=== PATIENT | male | born 1950 | race Caucasian/White ===

== ENCOUNTER 2016-11-07 14:25 | Outpatient (CLI) | payer MEDICARE, OTHER | END 2016-11-07 14:26 | disposition home or self-care (01) | DX: N50.819 Testicular pain, unspecified (principal); N50.3 Cyst of epididymis ==

== ENCOUNTER 2016-11-13 08:54 | Outpatient (CLI) | payer MEDICARE, OTHER | END 2016-11-13 08:55 | disposition home or self-care (01) | DX: Z12.5 Encounter for screening for malignant neoplasm of prostate (principal); E11.9 Type 2 diabetes mellitus without complications; Z79.899 Other long term (current) drug therapy; H93.19 Tinnitus, unspecified ear; R51 Headache; M54.5 Low back pain; M19.90 Unspecified osteoarthritis, unspecified site | CPT/HCPCS: 36415; 80053; 80061; 82570; 83036; 84156; 84443; 85025; 85651; 86140; G0103 ==

== ENCOUNTER 2016-11-27 13:46 | Outpatient (CLI) | payer MEDICARE, OTHER | END 2016-11-27 13:47 | disposition home or self-care (01) | DX: G31.9 Degenerative disease of nervous system, unspecified (principal); I67.82 Cerebral ischemia; J32.0 Chronic maxillary sinusitis; J32.2 Chronic ethmoidal sinusitis; J32.3 Chronic sphenoidal sinusitis ==

== ENCOUNTER 2017-12-25 08:00 | Outpatient (CLI) | payer MEDICARE, OTHER ==
[2017-12-25 17:45] LABS: BILIRUBIN,URINE NEGATIVE (NEGATIVE); GLUCOSE, URINE (UA) NEGATIVE (NEGATIVE); KETONES,URINE (UA) NEGATIVE (NEGATIVE); LEUKOCYTE ESTERASE, URINE NEGATIVE (NEGATIVE); NITRITE,URINE NEGATIVE (NEGATIVE); OCCULT BLOOD,URINE SMALL (NEGATIVE); PROTEIN,URINE NEGATIVE (NEGATIVE); UROBILINOGEN,URINE 0.2 (NORMAL) E.U./dL (NORMAL)
[2017-12-25 17:48] LABS: BASOPHILS % (AUTO) 0.6 %; CLARITY,URINE CLEAR (CLEAR); EOSINOPHILS # (AUTO) 0.1 10^3/uL (0.0-0.7); EOSINOPHILS % (AUTO) 1.8 %; HGB - HEMOGLOBIN 15.8 g/dL (14.0-18.0); LYMPHOCYTES # (AUTO) 1.4 10^3/uL (1.5-3.5); LYMPHOCYTES % (AUTO) 17.4 %; MEAN CORPUSCULAR HEMOGLOBIN 31.4 pg (27.0-31.0); MEAN CORPUSCULAR HGB CONC 33.7 g/dL (32.0-36.0); MEAN CORPUSCULAR VOLUME 93.4 fL (80.0-94.0); MEAN PLATELET VOLUME 9.9 fL (7.4-11.4); MONOCYTES # (AUTO) 0.7 10^3/uL (0.0-1.0); MONOCYTES % (AUTO) 9.1 %; NEUTROPHILS # (AUTO) 5.7 10^3/uL (1.5-6.6); NEUTROPHILS % (AUTO) 71.1 %; PLT - PLATELET COUNT 266 10^3/uL (130-450); RED BLOOD COUNT 5.02 10^6/uL (4.70-6.10)
[2017-12-25 17:56] LABS: BACTERIA,URINE None Seen /HPF (None Seen); CASTS, URINE 0-2 Hyaline Casts /LPF; RBC,URINE 0-5 /HPF (0-5); SQUAMOUS EPITHELIAL CELL,UR NONE SEEN (<= Few)
[2017-12-25 18:02] LABS: CREATININE,URINE 125.3 mg/dL; MICROALBUMIN,URINE 0.5 mg/dL (0-300.0)
[2017-12-25 18:15] LABS: ALBUMIN 4.3 g/dL (3.2-5.5); ALBUMIN/GLOBULIN RATIO 1.5 (1.0-2.2); ALKALINE PHOSPHATASE 58 IU/L (42-121); ALT ALANINE AMINOTRANSFERASE 19 IU/L (10-60); AST ASPARTATE AMINOTRANSFERASE 22 IU/L (10-42); BILIRUBIN,TOTAL 0.9 mg/dL (0.2-1.0); BUN - BLOOD UREA NITROGEN 12 mg/dL (6-20); CARBON DIOXIDE - CO2 24 mmol/L (21-32); CHLORIDE 101 mmol/L (101-111); CHOL/HDL RATIO 2.7 (<5.0); CHOLESTEROL 153 mg/dL; CREATININE 0.8 mg/dL (0.6-1.2); GFR - MDRD 96 (>89); GLUCOSE 122 mg/dL (70-100); HDL CHOLESTEROL 57 mg/dL; LDL CHOLESTEROL,CALCULATED 84 mg/dL; LDL/HDL RATIO 1.5 (<3.6); SODIUM 133 mmol/L (135-145); TOTAL PROTEIN 7.1 g/dL (6.7-8.2); VLDL CHOLESTEROL 12 mg/dL
[2017-12-25 19:37] LABS: HB2 TOTAL 18.1 g/dL; HEMOGLOBIN A1C 0.63 g/dL; HEMOGLOBIN A1C % 5.3 % (4.6-6.2)
== END 2017-12-25 08:01 | disposition home or self-care (01) ==
LOC: LAB.F 08:00
PROVIDERS: ATTEND Internal Medicine
DX: R03.0 Elevated blood-pressure reading, without diagnosis of hypertension (principal); E11.9 Type 2 diabetes mellitus without complications; M54.5 Low back pain; F43.10 Post-traumatic stress disorder, unspecified; K64.9 Unspecified hemorrhoids; Z79.899 Other long term (current) drug therapy; Z13.6 Encounter for screening for cardiovascular disorders; K29.70 Gastritis, unspecified, without bleeding; J43.9 Emphysema, unspecified
CPT/HCPCS: 36415; 80053; 80061; 81001; 81003; 82043; 82570; 83036; 83721; 84443; 85025; 87086

== ENCOUNTER 2020-09-02 08:00 | Outpatient (CLI) | payer MEDICARE, OTHER | END 2020-09-02 23:59 | disposition home or self-care (01) | LOC: LAB 08:00 | PROVIDERS: ATTEND Ophthalmology | DX: Z01.812 Encounter for preprocedural laboratory examination (principal); H25.11 Age-related nuclear cataract, right eye; Z20.822 Contact with and (suspected) exposure to COVID-19 ==

== ENCOUNTER 2020-09-09 07:18 | Day surgery (SDC) | payer MEDICARE, OTHER ==
[~2020-09-09 07:18] MED LIST: KETOROLAC 0.45% OPHTH DROPS ONE; PHENYLEPHRINE 2.5% OPHTH 2 ML DROPS ONE; PROPARACAINE 0.5% OPHTH DROPS 15 ML ONE
--- NOTE | 2020-09-09 07:58 | ANESTHESIA ---
Pre-Anesthesia VS, & Labs - Diagnosis right eye nuclear sclerotic cataract - Procedure right eye cataract extraction with IOL implant Vital Signs: Temp Pulse Resp BP Pulse Ox 36.6 C 70 18 187/86 H 95 09/09/20 07:47 09/09/20 07:47 09/09/20 07:47 09/09/20 07:47 09/09/20 07:47 Height: 5 ft 9 in Weight (kg): 83.6 kg Body Mass Index: 27.2 BMI Classification: Overweight - NPO >8 hours Home Medications and Allergies Home Medications: Ambulatory Orders acetaZOLAMIDE [Diamox] 250 mg PO QID 09/08/20 Diazepam [Valium] 10 mg PO BID PRN 12/30/13 oxyCODONE [Roxicodone] 5 mg PO QID PRN 12/30/13 acetaZOLAMIDE [Diamox] 250 mg PO QID 09/08/20 Allergies/Adverse Reactions: Allergies Allergy/AdvReac Type Severity Reaction Status Date / Time No Known Drug Allergies Allergy Verified 12/30/13 14:38 Anes History & Medical History - Anesthetic History Anesthesia Complications: reports: No previous complications - Medical History Cardiovascular: reports: Hypertension, High cholesterol Pulmonary: reports: None Gastrointestinal: reports: Other Urinary: reports: Frequency Neuro: reports: Other (tinnitus) Musculoskeletal: reports: Chronic back pain, Other Endocrine/Autoimmune: reports: None Blood Disorders: reports: None Skin: reports: None Smoking Status: Former smoker (Quit 20 years ago) Psychosocial: reports: Alcohol (Beer daily) History of Cancer?: No - Surgical History General: Appendectomy, Colonoscopy, EGD Eyes Ears Nose Throat (EENT): Tonsil/Adenoidectomy Exam General: Alert, Oriented x3, Cooperative, No acute distress Dental: Poor dentition Mouth Openin Fingerbreadth Neck Mobility: Normal Mallampati classification: II Respiratory: Lungs clear, Normal breath sounds, No respiratory distress, No accessory muscle use Cardiovascular: Regular rate, Normal S1, Normal S2, No murmurs Mental/Cognitive Status: Alert/Oriented X3, Normal for patient Plan Anesthesia Type: MAC Consent for Procedure(s) Verified and Reviewed: Yes Code Status: Attempt Resuscitation ASA classification: 2-Mild systemic disease Is this case an emergency?: No
[2020-09-09] MEDS ORDERED: EPINEPHrine 1 MG/ML AMP ONE (08:02)
[2020-09-09] MEDS ORDERED: BRIMONIDINE 0.2% OPHTH DROPS 5 ML ONE (08:02)
[2020-09-09] MEDS ORDERED: VANCOMYCIN OPHTHALMI 8MG/0.8ML 8 MG/0.8 ML SYRINGE IO ONE ×2 (08:02→08:24)
[2020-09-09] MEDS ORDERED: TIMOLOL 0.5% OPHTH DROPS ONE (08:02)
[2020-09-09] MEDS ORDERED: TRIAMCIN/MOXIFLOX OPHTHALMIC 0.6 ML VIAL IO ONE ×2 (08:02→08:23)
[2020-09-09] MEDS ORDERED: MIDAZOLAM 2 MG/2 ML VIAL ONE (08:10)
[2020-09-09] MEDS ORDERED: EPINEPHrine 1 MG/ML AMP IR ONE (08:22)
[2020-09-09] MEDS ORDERED: CHONDR SULF/HYALURONATE SYRINGE IO ONE (08:22)
[2020-09-09] MEDS ORDERED: BRIMONIDINE 0.2% OPHTH DROPS 5 ML OPTH ONE (08:22)
[2020-09-09] MEDS ORDERED: PROPARACAINE 0.5% OPHTH DROPS 15 ML EACHEYE ONE (08:23)
[2020-09-09] MEDS ORDERED: fentaNYL 100 MCG/2 ML VIAL ONE (08:23)
[2020-09-09] MEDS ORDERED: TIMOLOL 0.5% OPHTH DROPS OPTH ONE (08:23)
[2020-09-09] MEDS ORDERED: BSS/LIDOCAINE/EPINEPHRINE 1 ML SYRINGE IO ONE (08:23)
[2020-09-09] MEDS ORDERED: LACTATED RINGERS 500 ML IV ONE (08:35)
--- NOTE | 2020-09-09 08:40 | ANESTHESIA POST OP EVALUATION ---
Anesthesia Post Eval - Post Anesthesia Eval Vitals: Last Vital Signs Temp 36.4 C L 09/09/20 08:34 Pulse 59 L 09/09/20 08:34 Resp 16 09/09/20 08:34 BP 162/94 H 09/09/20 08:34 Pulse Ox 96 09/09/20 08:34 CV Function Including HR & BP: positive: Stable Pain Control: positive: Satisfactory Nausea & Vomiting: positive: Negative Mental Status: positive: Baseline Respiratory Status: Airway Patent Hydration Status: Satisfactory Anesthesia Complications: positive: None
[2020-09-09 09:11] VITALS: BP 153/67
--- NOTE | 2020-09-09 10:15 | OPERATIVE REPORT ---
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 Also, visually significant cataract, right eye. This was his first cataract surgery or sharp incisional glaucoma procedure. 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 Also, visually significant cataract, right eye. This was his first cataract surgery or sharp incisional glaucoma procedure. PROCEDURE: Phacoemulsification with posterior chamber intraocular lens implant, right eye. SURGEON: Narayan Pendleton MD. ANESTHESIA: Monitored anesthesia care. COMPLICATIONS: None. OPERATIVE INDICATIONS: This is a 70-year-old man with progressive vision loss in the right eye due to 3+ to 4+ nuclear sclerotic cataract, but also found to have angle closure upon gonioscopy with pressure near 50 in the right eye. He had 3 weeks previously had a laser peripheral iridotomy done at [facility]. Best corrected visual acuity was 20/40 with glare to 20/150 in the right eye. Indications for surgery werer chronic angle closure with poorly controlled intraocular pressure despite peripheral iridotomy, overall decrease in vision, difficulty seeing words on a computer screen, difficulty reading, difficulty seeing words, closed caption or game scores on TV, difficulty seeing street signs, difficulty driving in low light or at night, difficulty driving at night because of headlights from other vehicles, difficulty with glare or bright lights in any situation, difficulty tracking a golf ball, and decreased acuity with firearms. He was consented at length concerning the risks and benefits of cataract surgery to relieve angle closure glaucoma, after which he expressed a desire to proceed with surgery. OPERATIVE PROCEDURE: The patient was taken into OR #3 and placed under monitored anesthesia care. The eyes were palpated and felt to be in the normal pressure range both eyes, right and left. A surgical timeout was conducted, confirming correct patient, correct procedure, and correct surgical site. He was given topical anesthesia and prepped and draped in usual sterile fashion. The eye was entered at the 12 and 9 o'clock positions. Intracameral Shugarcaine was injected into the anterior chamber followed by Viscoat. A continuous-tear curvilinear capsulorrhexis was performed. Of note, his chamber was rather shallow consistent with his angle closure and hyperopia. The nucleus was hydrodissected and phacoemulsified. The cortex was evacuated using automated infusion and aspiration. Provisc was injected in the capsular bag and a 30.5 diopter intraocular lens inserted into the bag. Infusion and aspiration were used to evacuate the viscoelastic materials. The eye was inflated to physiologic pressure using balanced salt solution and found to be watertight. Approximately 0.25 mL of a mixture of triamcinolone and moxifloxacin was injected transsclerally into the vitreous in the inferotemporal quadrant. An additional 0.55 mL of a mixture of triamcinolone, moxifloxacin, and vancomycin was injected subconjunctivally in the superior quadrant for infection and inflammation prophylaxis. Wound integrity was checked with Weck-Julieth sponges. The patient was taken from the operating room in good condition and given postoperative instructions. TD: 09/09/2020 08:40 MTDD
== END 2020-09-09 07:19 | disposition home or self-care (01) ==
LOC: SDS 07:18
PROVIDERS: ATTEND Ophthalmology
DX: H25.11 Age-related nuclear cataract, right eye (principal); H40.2210 Chronic angle-closure glaucoma, right eye, stage unspecified; I10 Essential (primary) hypertension; Z87.891 Personal history of nicotine dependence; E66.3 Overweight; Z68.27 Body mass index [BMI] 27.0-27.9, adult
CPT/HCPCS: 66984; A9270; J3490; J7120; V2632

== ENCOUNTER 2020-09-20 07:00 | Outpatient (CLI) | payer MEDICARE, OTHER | END 2020-09-20 23:59 | disposition home or self-care (01) | LOC: COV 07:00 | PROVIDERS: ATTEND Ophthalmology | DX: Z01.812 Encounter for preprocedural laboratory examination (principal); H25.12 Age-related nuclear cataract, left eye; Z20.822 Contact with and (suspected) exposure to COVID-19 ==

== ENCOUNTER 2020-09-23 06:47 | Day surgery (SDC) | payer MEDICARE, OTHER ==
[2020-09-23] MEDS ORDERED: LACTATED RINGERS 500 ML IV ONE ×2 (07:09→08:42)
--- NOTE | 2020-09-23 07:28 | ANESTHESIA ---
Pre-Anesthesia VS, & Labs - Diagnosis l cataract - Procedure L phacoIOL Vital Signs: Temp Pulse Resp BP Pulse Ox 36.5 C 72 17 177/78 H 94 09/23/20 07:00 09/23/20 07:00 09/23/20 07:00 09/23/20 07:00 09/23/20 07:00 Height: 5 ft 9 in Weight (kg): 85.2 kg Body Mass Index: 27.7 BMI Classification: Overweight - NPO >8 hours Home Medications and Allergies Diazepam [Valium] 10 mg PO BID PRN 12/30/13 oxyCODONE [Roxicodone] 5 mg PO QID PRN 12/30/13 Allergies/Adverse Reactions: Allergies Allergy/AdvReac Type Severity Reaction Status Date / Time No Known Drug Allergies Allergy Verified 12/30/13 14:38 Anes History & Medical History - Anesthetic History Family history of Anesthesia Complications: Denies Family history of Malignant Hyperthermia: Denies - Medical History Cardiovascular: reports: Hypertension, High cholesterol Pulmonary: reports: None Gastrointestinal: reports: Other Urinary: reports: Frequency Neuro: reports: Other (tinnitus) Musculoskeletal: reports: Chronic back pain, Other Endocrine/Autoimmune: reports: None Blood Disorders: reports: None Skin: reports: None Smoking Status: Former smoker (Quit 20 years ago) - Surgical History General: reports: Appendectomy, Colonoscopy, EGD Eyes Ears Nose Throat (EENT): reports: Tonsil/Adenoidectomy Exam Dental: WNL Mouth Openin Fingerbreadth Neck Mobility: Normal Mallampati classification: II Thyromental Distance: 4-6 cm Plan Anesthesia Type: MAC Consent for Procedure(s) Verified and Reviewed: Yes Code Status: Attempt Resuscitation ASA classification: 2-Mild systemic disease Is this case an emergency?: No
[2020-09-23] MEDS ORDERED: MIDAZOLAM 2 MG/2 ML VIAL ONE (07:51)
[2020-09-23] MEDS ORDERED: fentaNYL 100 MCG/2 ML VIAL ONE (07:52)
[2020-09-23] MEDS ORDERED: BSS/LIDOCAINE/EPINEPHRINE 1 ML SYRINGE ONE (07:57)
[2020-09-23] MEDS ORDERED: TIMOLOL 0.5% OPHTH DROPS ONE (07:57)
[2020-09-23] MEDS ORDERED: VANCOMYCIN OPHTHALMI 8MG/0.8ML 8 MG/0.8 ML SYRINGE IO ONE ×2 (07:57→08:03)
[2020-09-23] MEDS ORDERED: EPINEPHrine 1 MG/ML AMP ONE (07:57)
[2020-09-23] MEDS ORDERED: TRIAMCIN/MOXIFLOX OPHTHALMIC 0.6 ML VIAL IO ONE ×2 (07:57→08:03)
[2020-09-23] MEDS ORDERED: BRIMONIDINE 0.2% OPHTH DROPS 5 ML ONE (07:57)
[2020-09-23] MEDS ORDERED: BSS/LIDOCAINE/EPINEPHRINE 1 ML SYRINGE IO ONE (08:02)
[2020-09-23] MEDS ORDERED: CHONDR SULF/HYALURONATE SYRINGE IO ONE (08:02)
[2020-09-23] MEDS ORDERED: BRIMONIDINE 0.2% OPHTH DROPS 5 ML OPTH ONE (08:02)
[2020-09-23] MEDS ORDERED: TIMOLOL 0.5% OPHTH DROPS OPTH ONE (08:02)
[2020-09-23] MEDS ORDERED: EPINEPHrine 1 MG/ML AMP IR ONE (08:02)
[2020-09-23] MEDS ORDERED: PROPARACAINE 0.5% OPHTH DROPS 15 ML EACHEYE ONE (08:03)
[2020-09-23] MEDS ORDERED: ACETYLCHOLINE 20 MG/2 ML KIT IO ONE ×2 (08:12→08:24)
[2020-09-23 08:42] VITALS: BP 155/80
--- NOTE | 2020-09-23 10:25 | OPERATIVE REPORT ---
DATE OF SERVICE: 09/23/2020 Physician: Narayan Pendleton MD PREOPERATIVE DIAGNOSES: Visually significant cataract, left eye. Cataract surgery was performed on the right eye on 09/09/2000. Also, he has angle- closure glaucoma which is actually the primary reason for doing cataract surgery to relieve his poorly controlled angle-closure glaucoma. POSTOPERATIVE DIAGNOSES: VVisually significant cataract, left eye. Cataract surgery was performed on the right eye on 09/09/2000. Also, he has angle- closure glaucoma which is actually the primary reason for doing cataract surgery to relieve his poorly controlled angle-closure glaucoma. PROCEDURE: Phacoemulsification with posterior chamber intraocular lens implant, left eye. SURGEON: Narayan Pendleton MD. ANESTHESIA: Monitored anesthesia care. COMPLICATIONS: None. OPERATIVE INDICATIONS: This is a 70-year-old man with progressive vision loss in the left eye due to 3+ to 4+ nuclear sclerotic cataract and, as before, also angle-closure glaucoma, poorly controlled with medications. Best corrected visual acuity was 20/40 with glare to 20/200. Indications for surgery were chronic angle-closure glaucoma, difficulty seeing words on a computer screen, difficulty reading, difficulty seeing words, closed caption or game scores on TV, difficulty seeing street signs, difficulty driving in low light or at night, difficulty driving at night because of headlights from other vehicles, difficulty with glare or bright lights in any situation, difficulty tracking a golf ball, and decreased acuity with firearms. He was consented at length concerning risks and benefits of cataract surgery, after which he expressed a desire to proceed with surgery. OPERATIVE PROCEDURE: The patient was taken into OR #3 and placed under monitored anesthesia care. A surgical timeout was conducted, confirming correct patient, correct procedure, and correct surgical site. He was given topical anesthesia and prepped and draped in usual sterile fashion. The eye was entered at the 6 and 3 o'clock positions. Intracameral Shugarcaine was injected into the anterior chamber followed by Viscoat. A continuous-tear curvilinear capsulorrhexis was performed. The nucleus was hydrodissected and phacoemulsified. However, during phacoemulsification, the iris got into the phaco tip, and the superonasal iris was damaged. The cortex was evacuated using automated infusion and aspiration. Provisc was injected in the capsular bag and a 32+0 diopter intraocular lens inserted into the bag. Infusion and aspiration were used to evacuate the viscoelastic materials. The eye was inflated to physiologic pressure using balanced salt solution and found to be watertight. Approximately 0.25 mL of a mixture of triamcinolone and moxifloxacin was injected transsclerally into the vitreous in inferotemporal quadrant. An additional 0.55 mL of a mixture of triamcinolone, moxifloxacin, and vancomycin was injected subconjunctivally in the superior quadrant for infection and inflammation prophylaxis. However, with the increased volume of the vitreous, the lens was continuing to prolapse out of the bag and the chamber was shallowing. Multiple attempts to reinflate the eye would not help, so a 10-0 suture was placed across the phaco wound, and then the eye was able to be inflated. Also, because of the prolapsing IOL, Miochol was injected into the anterior chamber to bring down the pupil and hold the lens behind the iris. Wound integrity was again checked with Weck-Julieth sponges. The patient was taken from the operating room in good condition and given postoperative instructions, and I also explained about the damage to the iris and the suture across the wound. TD: 09/23/2020 09:42 FADY
--- NOTE | 2020-09-23 10:48 | ANESTHESIA POST OP EVALUATION ---
Anesthesia Post Eval - Post Anesthesia Eval Vitals: Last Vital Signs Temp 36.6 C 09/23/20 08:27 Pulse 53 L 09/23/20 08:27 Resp 16 09/23/20 08:27 BP 155/80 H 09/23/20 08:27 Pulse Ox 100 09/23/20 08:27 CV Function Including HR & BP: positive: Stable Pain Control: positive: Satisfactory Nausea & Vomiting: positive: Negative Mental Status: positive: Baseline Respiratory Status: Airway Patent Hydration Status: Satisfactory Anesthesia Complications: positive: None
== END 2020-09-23 06:48 | disposition home or self-care (01) ==
LOC: SDS 06:47
PROVIDERS: ATTEND Ophthalmology
DX: H25.12 Age-related nuclear cataract, left eye (principal); H40.20X0 Unspecified primary angle-closure glaucoma, stage unspecified; I10 Essential (primary) hypertension; E78.5 Hyperlipidemia, unspecified; R35.0 Frequency of micturition; Z87.891 Personal history of nicotine dependence; G89.29 Other chronic pain; M54.9 Dorsalgia, unspecified; E66.3 Overweight; Z68.27 Body mass index [BMI] 27.0-27.9, adult; Z79.899 Other long term (current) drug therapy
CPT/HCPCS: 66984; A9270; J3490; J7120